=== PATIENT | female | born 1985 | race African-American/Black ===

== ENCOUNTER 2017-12-24 19:31 | Emergency (ER) | payer OTHER ==
[~2017-12-24] VITALS: Ht 154.9 cm; Wt 84.4 kg
[2017-12-24 19:47] VITALS: BP 137/90
[2017-12-24] MEDS ORDERED: MOBIC15 MG PO (20:59)
[2017-12-24] MEDS ORDERED: FLEXERIL PO (20:59)
== END 2017-12-24 21:07 | disposition home or self-care (01) ==
LOC: ER 19:31
DX: S39.012A Strain of muscle, fascia and tendon of lower back, initial encounter (principal); S16.1XXA Strain of muscle, fascia and tendon at neck level, initial encounter; V59.09XA Driver of pick-up truck or van injured in collision with other motor vehicles in nontraffic accident, initial encounter; Y93.89 Activity, other specified; Y92.89 Other specified places as the place of occurrence of the external cause; Y99.8 Other external cause status